=== PATIENT | female | born 2000 | race Caucasian/White ===

== ENCOUNTER → 2021-03-16 08:19 | Outpatient (CLI) | payer BC, SELFPAY ==
--- NOTE | ~2021-03-16 | US_ITS ---
US abdomen complete EXAMINATION: US Abdomen Complete INDICATION: Generalized abdominal pain PROCEDURE: Realtime High Resolution abdomen ultrasound. COMPARISON: No prior studies for comparison FINDINGS: Gallbladder within normal limits. No gallstones, pericholecystic fluid, gallbladder wall t hickening or biliary dilatation. Common bile duct measures 4 mm. Liver echotexture within normal limits without focal mass. Pancreas within normal limits. Pancreati c tail is obscured by bowel gas. Spleen is unremarkeable. Renal echotexture is within normal limits bilaterally without hydronephrosis, contour deforming mass or renal stone. Right kidney measures 8.5 cm. Left kidney measures 9.4 cm. Visualized aspects of the aorta and IVC are within normal limits. Portal vein is patent. No sonograph ic Henderson's sign indicated by the technologist. IMPRESSION: 1: Normal abdominal ultrasound. Reviewed, dictated and finalized at location A.
== END ==
PROVIDERS: PCP Family Medicine; Visit Provider Family Medicine
DX: R10.9 Unspecified abdominal pain (principal)
CPT/HCPCS: 76700

== ENCOUNTER → 2021-05-05 00:37 | Outpatient (CLI) | payer BC, SELFPAY ==
[2021-05-05 23:28] LABS: SARS-CoV-2 RNA PCR Negative
== END ==
PROVIDERS: PCP Family Medicine; Visit Provider Internal Medicine Gastroenterology
DX: Z01.812 Encounter for preprocedural laboratory examination (principal); Z20.822 Contact with and (suspected) exposure to COVID-19
CPT/HCPCS: C9803; U0003; U0005

== ENCOUNTER 2021-05-08 01:32 | Day surgery (SDC) | payer BC, SELFPAY ==
[2021-05-01 15:41] VITALS: BMI 29.2
--- NOTE | 2021-05-05 17:43 | WPDANESEPP ---
Anes - Eval Pre Procedure Procedure: Operation Date: 05/08/21 08:30 Proposed Procedures p Esophagogastroduodenoscopy & Colonoscopy - Ricky Teague MD Date/Time: 05/05/21 17:43 Pre Op Diagnosis: nausea, vomiting, epigastric pain Patient Data Age: 20 Gender: F Height: 1.6 m Weight: 75 kg Allergies Allergy/AdvReac Type Severity Reaction Status Date / Time No Known Allergies Allergy Verified 05/01/21 15:36 Home Medications Medication Instructions Recorded Confirmed Type norethindrone 1 mg-ethinyl 1 tablet PO DAILY #84 tablet 03/17/21 05/01/21 Rx estradiol 20 mcg (24)-iron 75 mg (4) tablet rizatriptan 10 mg PO DAILY PRN 05/01/21 05/01/21 History sumatriptan succinate 6 mg SUBCUT DAILY PRN 05/01/21 05/01/21 History Patient hx anesthesia problems: none Family hx anesthesia problems: none [facility] Past Medical History Medical History (Updated 05/05/21 @ 17:43 by Harpal Eller DO) Anxiety Endometriosis Migraine Pituitary abnormality Surgical History Surgical History History of tonsillectomy and adenoidectomy [place] teeth removed Family History Family History Other Ovarian cyst Social History Social History Social History: Single Smoking status: Never smoker Second hand tobacco smoke exposure: No Alcohol intake: current Drinks per week: 8 Substance use: current Substance use type: marijuana Last use: 04/29/2021 Additional occupation/education comments: Pt also works part-time. Gender identity (if verbalized by the patient): Female Spiritual care concerns: No Exam Day of Procedure 05/05/21 17:43
[2021-05-08 07:42] VITALS: BP 104/72; PULSE 79; RESP 16; TEMP 36.2; O2SAT 100
--- NOTE | 2021-05-08 07:45 | WPDHPUPDATE1 ---
History and Physical Update Update Date/Time: 05/08/21 07:45 History and Physical has been reviewed, including an updated exam of the patient. There are NO changes in the patient's condition. Risks, benefits, and alternatives have been discussed and questions answered. Patient agrees to proceed with procedure.
--- NOTE | 2021-05-08 07:51 | WPDANESEFPP ---
Anes - Eval Final PreProcedure Day of Procedure 05/08/21 07:51 Patient weight: overweight Heart: regular rate and rhythm Lungs: clear to auscultation Airway: Mallampati scale class II Neurological: alert and oriented Last oral intake: >/= 8 hours ASA classification: II Emergent: no Anesthetic plan: proceed Anesthesia type and monitoring: general GIVS and standard monitoring Informed Consent: The patient's anesthetic plan and its attendant risks and benefits were discussed with the patient/family/POA. Questions were solicited and answers provided to the satisfaction of the patient/family/POA.
[2021-05-08] MEDS: LACTATED RINGERS 1,000 ML 150 ML IV CONT (07:55)
[2021-05-08 08:48] VITALS: BP 100/91; PULSE 61; RESP 27; O2SAT 100
[2021-05-08 08:58] VITALS: BP 100/99; PULSE 78; RESP 21; O2SAT 100
[2021-05-08 09:08] VITALS: BP 104/65; PULSE 69; RESP 19; O2SAT 100
== END 2021-05-08 09:16 | disposition home or self-care (01) ==
PROVIDERS: PCP Family Medicine; Visit Provider Internal Medicine Gastroenterology
PROC: 0DJ08ZZ Inspection of Upper Intestinal Tract, Via Natural or Artificial Opening Endoscopic (ICD-10-PCS; CPT 43235; principal; 2021-05-08 08:30)
DX: R10.13 Epigastric pain (principal); K21.9 Gastro-esophageal reflux disease without esophagitis; R10.84 Generalized abdominal pain; K59.00 Constipation, unspecified; R11.2 Nausea with vomiting, unspecified; F41.9 Anxiety disorder, unspecified; N80.9 Endometriosis, unspecified; E23.6 Other disorders of pituitary gland; F12.90 Cannabis use, unspecified, uncomplicated; R10.9 Unspecified abdominal pain
CPT/HCPCS: 43235; 45378; 87081; J2704; J7120